=== PATIENT | male | born 1980 | race Caucasian/White ===

== ENCOUNTER 2023-10-30 15:08 | Emergency (ER) | payer BC, SELFPAY ==
--- NOTE | ~2023-10-30 | XR_ITS ---
EXAMINATION: XR knee RT 3V DATE: 10/30/2023 15:33 INDICATION: Right knee pain. Fall. TECHNIQUE: 3 views of right knee were obtained. COMPARISON: None. FINDINGS: There is a comminuted fracture of lateral tibial plateau with depression of the articular s urface to 8 mm and lateral and posterior displacement of fracture fragments. There is a nondisplaced fracture component involving the medial tibial plateau. The joint spaces are otherwise normal. There is a large lipohemarthrosis. IMPRESSION: 1. Comminuted bicondylar fracture of proximal tibia. 2. Large lipohemarthrosis. Reviewed, dictated and finalized at location E.
[2023-10-30 15:44] VITALS: BP 142/78; PULSE 87; RESP 16; TEMP 37; O2SAT 99
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
[2023-10-30] MEDS: ONDANSETRON INJ 4 MG/2 ML VIAL IV PUSH (16:36)
[2023-10-30] MEDS: MORPHINE SULFATE (*CRX) 4 MG/ML INJ IV PUSH (16:36)
[2023-10-30 16:43] VITALS: BP 135/92; PULSE 65; RESP 17; O2SAT 100
--- NOTE | 2023-10-30 17:55 | PC.NURSE ---
Accepting doctor at [place] is Dr. Santiago.
== END 2023-10-30 17:41 | disposition short-term general hospital (02) ==
PROVIDERS: Emergency Provider Nurse Practitioner Family
DX: S82.141A Displaced bicondylar fracture of right tibia, initial encounter for closed fracture (principal); V86.56XA Driver of dirt bike or motor/cross bike injured in nontraffic accident, initial encounter
CPT/HCPCS: 73562; 96374; 96375; 99285; J2270; J2405